=== PATIENT | male | born 1960 | race Caucasian/White ===

== ENCOUNTER 2018-11-26 14:55 | Emergency (ER) | payer SELFPAY ==
[~2018-11-26] VITALS: Ht 177.8 cm; Wt 72.6 kg
--- NOTE | 2018-11-26 14:55 | NUR ---
BIBA C/O BL LEG AND FOOT SORENESS, PT REFUSING VITALS AND TO ANSWER ANY QUESTIONS, [place] AT BEDSIDE TO WRITE 5150 HOLD FOR GRAVELY DISABLED. PT APPEARS DISHELVED DIRTY, FACE IS REDDENED AND SKIN IS DRY. PAIN LEVEL 5/10. PT STATES, "I DONT HAVE TO BE HERE , I WANT TO LEAVE, I HAVE THE RIGHT TO LEAVE." PT REFUSES/DENIES TO ANSWER ANY PMH. REFUSES TO ANSWER ANY ALLERGIES.
--- NOTE | 2018-11-26 14:59 | NUR ---
PT REFUSING VITALS AND WRIST BAND PLACEMENT.
--- NOTE | 2018-11-26 15:00 | NUR ---
PT GRABBING HIS BELONGINGS AND STATES HE DOES NOT WANT TO STAY , ATTEMTPS BY STAFF TO REORIENT PT AND TO HAVE HIM STAY IN BED, SECURITY CALLED, PT WALKED OUT OF AMBULANCE DOOR, [facility] CALLED AND ADVISED OF PT SITUATION. ADVISED OFFICER WILL BE SENT TO AREA.
--- NOTE | 2018-11-26 15:04 | NUR ---
PT IS STARTING TO GET AGITATED AND SHOUT, "WHY THE TORTURE?! WHY AM I STILL HERE!? "
--- NOTE | 2018-11-26 15:06 | NUR ---
Lennie garner in ED - 11/26/18 at 1507 by [facility] IM THIRST!, IM LEAVING! IM NOT GOING TO STAY HERE!
--- NOTE | 2018-11-26 15:06 | NUR ---
PT STATES, "IM THIRST!, IM LEAVING! IM NOT GOING TO STAY HERE!"
--- NOTE | 2018-11-26 15:06 | NUR ---
AWARE ABOUT PT STATES.
[2018-11-26] MEDS ORDERED: HALOPERIDOL IM 5 MG/ML VIAL IM ONE (15:10)
[2018-11-26] MEDS ORDERED: diphenhydrAMINE 50 MG/ML VIAL IM ONE (15:10)
[2018-11-26] MEDS ORDERED: LORazepam 2 MG/ML VIAL IM ONE (15:10)
--- NOTE | 2018-11-26 15:13 | NUR ---
PT WALKED OUT OF FACILITY YELLING AT STAFF. SECURITY WAS CALLED. PT WAS FOLLOWED OUT BY MYSELF AND SECRUITY ASKING PATIENT TO RETURN. PATIENT WALK[place]CROSS [place] [address] [place] [facility] [address] AND MADE AN ATTEMPT TO GET ONTO THE [employer] BUS. PT DID NOT GET ONTO THE BUS AND LAID HIS BLANKET ON THE GROUND AND THEN LIED DOWN ON TOP OF IT. WAITED OUTSIDE WITH SECURITY FOR [place] [employer] TO ARRIVE.
--- NOTE | 2018-11-26 15:30 | NUR ---
ASHU FROM [employer] STATES [facility] IS ON SCENE AND WILL NOT TRANSPORT THE PATIENT AT THIS TIME AND ARE REQUESTING US TO CALL AN AMBULANCE. I SPOKE TO DYLAN FROM [facility] TO CALL FOR AN AMBULANCE TO EXCHANGE ARCHITECT THE PATIENT FROM [address]. SHE REPORTS THEY WILL SEND A UNIT OUT TO BRING THE PATIENT BACK FROM [address].
[2018-11-26] MEDS ORDERED: NACL 0.9% 500 ML IV ONE (16:05)
--- NOTE | 2018-11-26 16:21 | NUR ---
PT REFUSING TO HAVE CLOTHES REMOVED AT THIS TIME. PT EXTREMELY AGITATED WHEN TRYING TO CHANGE HIM. WILL MONTIOR PATIENT AND RE ASSESS TO REMOVE PERSONAL BELONGINGS FROM PATIENT.
[2018-11-26 16:58] LABS: BASOPHILS % (AUTO) 0.6 % (0.0-2.0); EOSINOPHILS # (AUTO) 0.2 K/uL (0-0.4); EOSINOPHILS % (AUTO) 4.1 % (0.0-4.0); HEMATOCRIT 37.8 % (36-52); HEMOGLOBIN 12.2 g/dL (12.0-18.0); LYMPHOCYTES % (AUTO) 18.2 % (20.5-51.1); MEAN CORPUSCULAR HEMOGLOBIN 31 pg (27-31); MEAN CORPUSCULAR HGB CONC 32 g/dL (33-37); MEAN CORPUSCULAR VOLUME 97.3 fL (80-94); MONOCYTES # (AUTO) 0.7 K/uL (0.8-1.0); MONOCYTES % (AUTO) 12.5 % (1.7-9.3); NEUTROPHILS # (AUTO) 3.6 K/uL (1.8-7.7); NEUTROPHILS % (AUTO) 64.6 % (42.2-75.2); PLATELET COUNT (AUTO) 246 K/uL (140-450); RED BLOOD CELL COUNT(AUTO) 3.88 MIL/uL (4.20-6.10); RED CELL DISTRIBUTION WIDTH 14.4 % (11.6-13.7); WHITE BLOOD COUNT (AUTO) 5.6 K/uL (4.8-10.8)
--- NOTE | 2018-11-26 17:00 | NUR ---
STRAIGHT CATH PERFORMED, 100CC YELLOW CLEAR URINE NOTED, SAMPLE COLLECTED AND SENT TO LAB, PT POSITIONED TO COMFORT AFTER PROCEDURE. SWELLING NOTED TO SUPRAPUBIC AREA SPREADING INTO LEFT TESTICLE, DR VALDES MADE AWARE.
[2018-11-26 17:42] LABS: ANION GAP 12.9 (8-16); ASPARTATE AMINOTRANSFERASE 40 U/L (15-37); CARBON DIOXIDE 25.9 mmol/L (21-32); CHLORIDE 107 mmol/L (98-107); GFR ARICAN-AMERICAN 98 mL/min (>90); GLUCOSE 138 mg/dL (74-106); SODIUM SERUM 143 mmol/L (136-145); TOTAL BILIRUBIN 0.3 mg/dL (0.0-1.0); UREA NITROGEN, BLOOD 10 mg/dL (7-18)
--- NOTE | 2018-11-26 17:59 | NUR ---
MANISHA FROM LAB CALLED TO REPORT CRITICAL VALUE OF POTASSIUM OF 2.8. MD STEEN NOTIFIED
[2018-11-26 18:03] LABS: POTASSIUM 2.8 mmol/L (3.5-5.1); SALICYLATE < 2.8 mg/dL (2.8-20.0)
[2018-11-26] MEDS ORDERED: POTASSIUM CHLORIDE 10 MEQ TABER PO ONE (18:10)
[2018-11-26 18:27] LABS: ACETAMINOPHEN < 0.5 ug/ml (10-30)
[2018-11-26 18:59] LABS: BARBITURATE, URINE NEGATIVE ng/ml (NEG <=200); BENZODIAZEPINE, URINE NEGATIVE ng/mL (NEG <=200); CANNABINOID, URINE POSITIVE ng/mL (NEG <=50); COCAINE, URINE NEGATIVE ng/mL (NEG <=300); OPIATE, URINE NEGATIVE ng/mL (NEG <=2000); PHENCYCLIDINE SCREEN,URINE NEGATIVE ng/mL (NEG <=25)
--- NOTE | 2018-11-26 19:16 | NUR ---
Pt report given to NELI MORRIS.. Transfer of care at this time.
--- NOTE | 2018-11-26 19:17 | NUR ---
REPORT RECEIVED FROM ALEXANDRA TORRES. TRANSFER OF CARE AT THIS TIME.
--- NOTE | 2018-11-26 19:22 | NUR ---
PT SLEEPING, CALM WITH VSS AT THIS TIME.
--- NOTE | 2018-11-26 20:40 | NUR ---
PT SLEEPING, CALM WITH VSS AT THIS TIME.
--- NOTE | 2018-11-26 21:37 | NUR ---
PT SLEEPING, CALM WITH VSS AT THIS TIME.
--- NOTE | 2018-11-26 22:28 | NUR ---
TELEPSYCH CONSULT IN PROGRESS.
--- NOTE | 2018-11-26 22:40 | NUR ---
CONSULT COMPLETED. AWAITING FAXED ORDERS.
--- NOTE | 2018-11-27 00:12 | NUR ---
PT SLEEPING WITH VSS. AROUSABLE TO VERBAL STIMULI. SKIN PINK, WARM, DRY. DENIES PAIN/DISCOMFORT AT THIS TIME.
--- NOTE | 2018-11-27 01:01 | NUR ---
PT SLEEPING. AROUSABLE TO VERBAL STIMULI. SKIN PINK, WARM, DRY. BREATHING EVEN, UNLABORED.
--- NOTE | 2018-11-27 01:28 | NUR ---
Pt refuses offer of intermediate placement. Given list of available shelters in surrounding areas.
[2018-11-27 01:30] VITALS: BP 133/84
--- NOTE | 2018-11-27 01:30 | NUR ---
Patient does not wish to proceed with medical care recommended by Dr. Klein. Patient given information related to possible complications, up to and including , which could occur as a result of leaving hospital at this time. Patient verbalizes understanding of risks involved leaving against medical advice. Patient has signed AMA form.
== END 2018-11-27 01:30 | disposition left against medical advice (07) ==
LOC: MED 14:55
DX: M79.604 Pain in right leg (principal); M79.605 Pain in left leg; F17.200 Nicotine dependence, unspecified, uncomplicated; Z59.0 Homelessness; Z71.6 Tobacco abuse counseling
CPT/HCPCS: 36415; 76870; 80053; 80305; 85025; 93005; 96372; 99285; C1758; G0480; G0482; J1200; J1630; J2060; J7030; Q0092